=== PATIENT | female | born 2000 | race Caucasian/White ===

== ENCOUNTER → 2023-08-08 16:12 | Outpatient (CLI) | payer OTHER, SELFPAY ==
--- NOTE | 2023-08-08 16:15 | US_ITS ---
PROCEDURE: US OB BIOPHYSICAL PROFILE CLINICAL INDICATION: sga/ with TANIA COMPARISON: FINDINGS: Transabdominal sonographic images of the uterus were obtained. From her established due date she is 29weeks 0 days. The following parameters are obtained: Viable fetus in the cephalic presentation with a posterior placenta grade 1. Average ultrasound age is 27weeks 4days. Estimated due date by ultrasound is 11/03/2023. Estimated weight is 2lb 6oz, 1096 grams. heart rate: 138bpm bpm. BPD: 26weeks 6days OFD: 26weeks 6days HC: 26 weeks 5 days AC: 26 weeks 5 days FL: 29 weeks 2 days HC/AC: 1.1 Cephalic index: 0.78 FL/BPD: 0.82 FL/AC: 0.25 5 percentile Amniotic fluid index: 10.59cm, MVP 3.7 cm. Qualitative AFV: 2 breathing movements: 2 Gross body movements: 2 Tone: 2 Biophysical profile score: 8 Doppler evaluation of the umbilical artery: SD ratio: 2.59-3.36 Resistive index: 0.62 No obvious anomalies evident.Kidneys, profile, nasion, bladder, stomach, four-chamber heart, three-vessel cord appear normal. IMPRESSION: 1. Viable fetus in the cephalic presentation with a posterior placenta grade 1. 2. The fluid is within normal limits with an amniotic fluid index of 10.59 cm, MVP 3.7 cm. 3. Biophysical profile 8/8 with good breathing movement seen. 4. SD ratio is normal between 2.6 and 3.36. 5. Fetus is symmetrically small currently 2 weeks behind on growth. She is 5th percentile. 6. The AC is almost 3 weeks behind. Physician on-call was notified of the growth restriction. 7. Suggest we confirm her dates. A copy of her early ultrasound would be helpful since this is her 1st ultrasound here. Dictated by: Jesus Alexandra MD 08/08/2023 19:11 Jesus Alexandra MD in [place] 08/08/2023 19:11
== END ==
PROVIDERS: PCP Obstetrics & Gynecology; Visit Provider Obstetrics & Gynecology
DX: O28.8 Other abnormal findings on antenatal screening of mother (principal); O36.5920 Maternal care for other known or suspected poor fetal growth, second trimester, not applicable or unspecified; Z3A.27 27 weeks gestation of pregnancy
CPT/HCPCS: 76816; 76819

== ENCOUNTER 2023-09-12 14:51 | Outpatient (CLI) | payer OTHER, SELFPAY ==
[2023-09-12 15:02] VITALS: BMI 39.4
[2023-09-12 16:06] VITALS: BP 139/86; PULSE 85; RESP 18; TEMP 36.8; O2SAT 99; BMI 39.4
== END 2023-09-12 15:51 | disposition home or self-care (01) ==
LOC: OBOUT 14:52 → OB 14:52
PROVIDERS: Visit Provider Obstetrics & Gynecology
DX: O26.893 Other specified pregnancy related conditions, third trimester (principal); Z3A.34 34 weeks gestation of pregnancy
CPT/HCPCS: 59025; G0463

== ENCOUNTER 2023-09-19 12:47 | Outpatient (CLI) | payer OTHER, SELFPAY ==
[2023-09-19 13:00] VITALS: BP 133/90; PULSE 93; RESP 17; TEMP 36.8; O2SAT 100; BMI 39.4
[2023-09-19 13:09] VITALS: BMI 39.4
[2023-09-19 13:24] LABS: Microscopic, Urine URINE MICROSCOPIC (MICROSCOPIC)
[2023-09-19 13:26] LABS: Appearance,Urine CLEAR (Clear); Bilirubin,Urine Negative (Negative); Blood, Urine Negative (Negative); Color,Urine YELLOW (Yellow); Glucose,Urine (UA) Negative (Negative); Ketones,Urine Negative (Negative); Leukocyte Esterase,Urine 1+ (Negative); Nitrate,Urine POSITIVE (Negative); Protein,Urine Negative (Negative); Urobilinogen,Urine 0.2 EU/dl (0.2)
[2023-09-19 13:39] LABS: Bacteria,Urine 3+ /lpf
[2023-09-19 13:47] LABS: Amphetamine/Metha Screen,Urine Negative ng/ml (<1000); Barbiturates Screen,Urine Negative ng/ml (<200); Benzodiazepines Screen,Urine Negative ng/ml (<200); Cannabinoid Screen,Urine Negative ng/ml (<50); Cocaine Screen,Urine Negative ng/ml (<300); Methadone Screen,Urine Negative ng/ml (<300); Opiate Screen,Urine Negative ng/ml (<300); Phencyclidine Screen,Urine Negative ng/ml (<25)
== END 2023-09-19 13:58 | disposition home or self-care (01) ==
LOC: OBOUT 12:49 → OB 12:51
PROVIDERS: Visit Provider Obstetrics & Gynecology
DX: O26.893 Other specified pregnancy related conditions, third trimester (principal); Z3A.35 35 weeks gestation of pregnancy
CPT/HCPCS: 59025; 80307; 81001; 87086; G0463

== ENCOUNTER 2023-09-22 17:02 | Outpatient (CLI) | payer OTHER, SELFPAY | END 2023-09-22 23:59 | LOC: LAB.DROPOF 17:03 | PROVIDERS: PCP Obstetrics & Gynecology; Visit Provider Obstetrics & Gynecology | DX: Z34.93 Encounter for supervision of normal pregnancy, unspecified, third trimester (principal); Z3A.35 35 weeks gestation of pregnancy | CPT/HCPCS: 86403 ==

== ENCOUNTER 2023-09-28 23:27 | Outpatient (CLI) | payer OTHER, SELFPAY ==
[2023-09-28 23:36] VITALS: BMI 40.3
[2023-09-28 23:59] LABS: Microscopic, Urine URINE MICROSCOPIC (MICROSCOPIC)
[2023-09-29 00:04] LABS: Appearance,Urine CLOUDY (Clear); Bilirubin,Urine Negative (Negative); Blood, Urine Negative (Negative); Color,Urine YELLOW (Yellow); Glucose,Urine (UA) Negative (Negative); Ketones,Urine Negative (Negative); Leukocyte Esterase,Urine 1+ (Negative); Nitrate,Urine Negative (Negative); PH,Urine 6.5 (5.0-8.5); Protein,Urine Negative (Negative); Urobilinogen,Urine 0.2 EU/dl (0.2)
[2023-09-29 00:10] LABS: Fetal Membrane Rupture (Rapid) Negative (Negative)
[2023-09-29 00:17] VITALS: BP 129/88; PULSE 102; RESP 19; TEMP 37.2; O2SAT 100; BMI 40.3
[2023-09-29 00:18] LABS: Cannabinoid Screen,Urine Negative ng/ml (<50); Cocaine Screen,Urine Negative ng/ml (<300); Methadone Screen,Urine Negative ng/ml (<300); Opiate Screen,Urine Negative ng/ml (<300); Phencyclidine Screen,Urine Negative ng/ml (<25)
[2023-09-29 00:20] LABS: Barbiturates Screen,Urine Negative ng/ml (<200)
[2023-09-29 00:21] LABS: Benzodiazepines Screen,Urine Negative ng/ml (<200)
[2023-09-29 00:29] LABS: Bacteria,Urine Trace /lpf
[2023-09-29 00:36] LABS: Amphetamine/Metha Screen,Urine Negative ng/ml (<1000)
== END 2023-09-29 00:35 | disposition home or self-care (01) ==
LOC: OBOUT 23:30 → OB 23:31
PROVIDERS: Referring Provider Obstetrics & Gynecology; Visit Provider Nurse Practitioner Obstetrics & Gynecology
DX: O26.893 Other specified pregnancy related conditions, third trimester (principal); Z3A.36 36 weeks gestation of pregnancy
CPT/HCPCS: 59025; 80307; 81001; 84112; 87086; G0463

== ENCOUNTER 2023-10-02 13:31 | Outpatient (CLI) | payer OTHER, SELFPAY ==
[2023-10-02 13:59] VITALS: BP 135/81; PULSE 103; RESP 16; TEMP 37.1; O2SAT 100; BMI 39.8
== END 2023-10-02 14:38 | disposition home or self-care (01) ==
LOC: OBOUT 13:33 → OB 13:35
PROVIDERS: Visit Provider Obstetrics & Gynecology
DX: O26.893 Other specified pregnancy related conditions, third trimester (principal); Z3A.36 36 weeks gestation of pregnancy
CPT/HCPCS: 59025; G0463

== ENCOUNTER 2023-10-05 16:23 | Inpatient (IN) | payer OTHER, SELFPAY ==
[2023-10-05 16:33] VITALS: BMI 39.8
[2023-10-05 17:25] VITALS: BP 135/87; PULSE 100; RESP 17; TEMP 37.2; O2SAT 98; BMI 39.8
[2023-10-05 17:37] LABS: Microscopic, Urine URINE MICROSCOPIC (MICROSCOPIC)
[2023-10-05 17:41] LABS: Appearance,Urine CLOUDY (Clear); Blood, Urine TRACE-I (Negative); Color,Urine YELLOW (Yellow); Glucose,Urine (UA) Negative (Negative); Ketones,Urine TRACE (Negative); Leukocyte Esterase,Urine 2+ (Negative); Nitrate,Urine Negative (Negative); Protein,Urine 2+ (Negative); Specific Gravity, Urine >= 1.030 (1.005-1.030); Urobilinogen,Urine 0.2 EU/dl (0.2)
[2023-10-05 17:41] LABS: Basophils % 0.2 % (0.1-2.0); Eosinophils % 0.2 % (0.1-12.0); Hematocrit 36.2 % (37.0-47.0); Hemoglobin 12.7 g/dL (12.2-16.2); Lymphocytes # 2.3 K/mm3 (0.7-4.5); Lymphocytes % 18.2 % (10-50); Mean Corpuscular Hemoglobin 31.6 pg (27.0-31.2); Mean Corpuscular Volume 90.3 fl (81-99); Mean Platelet Volume 10.6 fl (7.4-10.4); Monocytes # 0.7 K/mm3 (0.1-1.0); Monocytes % 5.4 % (1.7-9.3); Neutrophils # 9.5 K/mm3 (1.8-7.8); Platelet Count 266 K/mm3 (142-424); Red Blood Count 4.01 M/mm3 (4.20-5.40); Red Cell Distribution Width 14.6 % (11.5-17.5); White Blood Count 12.5 K/mm3 (4.8-10.8)
[2023-10-05 17:42] LABS: Bilirubin,Urine 1+ (Negative)
[2023-10-05 17:53] LABS: Barbiturates Screen,Urine Negative ng/ml (<200)
[2023-10-05 17:54] LABS: Amphetamine/Metha Screen,Urine Negative ng/ml (<1000); Benzodiazepines Screen,Urine Negative ng/ml (<200)
[2023-10-05 17:55] LABS: Cannabinoid Screen,Urine Negative ng/ml (<50)
[2023-10-05 17:56] LABS: Bacteria,Urine 4+ /lpf; Cocaine Screen,Urine Negative ng/ml (<300); Methadone Screen,Urine Negative ng/ml (<300); RBC,Urine Occasional #/hpf (0-3)
[2023-10-05 17:57] LABS: Opiate Screen,Urine Negative ng/ml (<300); Phencyclidine Screen,Urine Negative ng/ml (<25)
[2023-10-05] MEDS: miSOPROStol 100MCG TABLET 50 MCG PO (18:23)
[2023-10-05 20:22] VITALS: BP 146/86; PULSE 96; RESP 17; TEMP 36.8; O2SAT 99
[2023-10-06] MEDS: miSOPROStol 100MCG TABLET 50 MCG PO ×4 (00:08→21:57)
[2023-10-06 07:36] VITALS: BP 134/75; PULSE 82; RESP 18; TEMP 36.8; O2SAT 99
--- NOTE | 2023-10-06 09:35 | EXP.OB.APHP ---
OB - H&P: HPI Antepartum History of Present Illness Chief complaint: Induction of labor for asymmetric IUGR History of present illness: Ms Letty Weeks is a 23 yo at 37w3d who presents to [facility] Labor and Delivery for scheduled induction of labor for asymmetric IUGR. Ultrasound with PDC 09/22/23 demonstrated EFW 14 %ile but AC lagging at 3 %ile. She transferred care to [facility] Women's Health clinic at 28 weeks. complicated by asthma. She has had good care. History of Present Criteria for establishing EDC:: LMP confirmed by 2nd trimester US care: good care Ultrasounds: abnormal US findings (Asymmetric IUGR) Obstetrical complications: none Medical complications: respiratory (asthma) Labs Blood type: A (+) positive Rubella: immune RPR/VDRL: nonreactive GBS status: negative HBsAG: negative [facility] Disclaimer: The information contained in this section may have been updated after the patient was seen, as this information can be updated by other users. Medical History (Updated 10/06/23 @ 09:44 by Yola Perez DO) 37 weeks gestation of Asthma affecting , antepartum Asymmetric IUGR affecting , antepartum Maternal obesity affecting , antepartum UTI (urinary tract infection) in , antepartum Surgical History History of tonsillectomy [place] teeth removed Family History Other Alcoholism Anemia Asthma Cancer Diabetes FHx: mental illness Hyperlipidemia Hypertension Substance abuse Social History (Updated 10/05/23 @ 23:30 by Joslyn Ashraf RN) Smoking Status: Never smoker alcohol intake: never substance use type: denies use current occupational status: unemployed Travel in the last 8 weeks: None Review of Systems Review of Systems Review of systems:: pertinent systems reviewed and negative unless documented below Meds Home Medications and Allergies Home Medications Medication Instructions Recorded Confirmed Type vits no.[id number]-ferrous fum tab PO DAILY 08/04/23 09/29/23 History 28 mg iron-folic acid 800 mcg tablet (Classic ) albuterol sulfate 90 mcg/actuation 2 puff inhalation Q6H PRN 09/22/23 09/29/23 Rx aerosol inhaler shortness of breath or wheezing #8.5 grams nitrofurantoin 100 mg PO BID 7 days #14 caps 09/22/23 09/29/23 Rx monohydrate/macrocrystals 100 mg capsule (Macrobid) albuterol sulfate 2.5 mg/3 mL 2.5 mg inhalation PRN 09/29/23 09/29/23 History (0.083 %) solution for nebulization New Prescriptions to Start Prescriptions: Allergies Allergy/AdvReac Type Severity Reaction Status Date / Time No Known Allergies Allergy Verified 09/29/23 13:35 OB - H&P: Exam Physical Exam Vital signs: Temp Pulse Resp BP Pulse Ox O2 Del Method 98.3 F 82 18 134/75 99 Room Air 10/06/23 07:36 10/06/23 07:36 10/06/23 07:36 10/06/23 07:36 10/06/23 07:36 10/06/23 07:36 Constitutional no acute distress and cooperative Routine HEENT Exam Head: Present normocephalic and atraumatic Eye: Absent conjunctivae pink ENT: Present mucous membranes moist Routine Neck Exam Present full ROM Routine Respiratory Exam Present CTA bilaterally and normal respiratory effort Routine Cardiovascular Exam Present RRR Routine Abdominal Exam Present soft (Gravid); Absent tenderness Routine Rectal Exam Patient deferred: visual exam Routine Exam Patient deferred: external exam Routine Extremities Exam Present edema (+1 bilateral lower extremity edema) and full ROM; Absent calf tenderness Routine Neurological Exam Present alert, moving all extremities and normal speech Routine Psychiatric Exam Present normal affect and cooperative Detailed Labor and Delivery Exam Dilation (cm): 1 Effacement (%): 30 Cervix position: posterior station: -2 Consistency: medium Membranes: intact Baseline heart rate: 130 monitor accelerations: Present monitor decelerations: None 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: Moderate (11-25) Tachysystole: No OB - Results Labs Labs: Short CBC 10/05/23 Range/Units 17:10 WBC 12.5 H (4.8-10.8) K/mm3 Hgb 12.7 (12.2-16.2) g/dL Hct 36.2 L (37.0-47.0) % Plt Count 266 (142-424) K/mm3 Urine 10/05/23 Range/Units 17:14 Urine Color Yellow (Yellow) Urine Appearance Cloudy (Clear) Urine pH 6.0 (5.0-8.5) Ur Specific [place] >= 1.030 (1.005-1.030) Urine Protein 2+ (Negative) Urine Glucose (UA) Negative (Negative) OB - A/P Antepartum (1) 37 weeks gestation of : Status: Acute (2) Asymmetric IUGR affecting , antepartum: Status: Acute (3) Maternal obesity affecting , antepartum: Status: Acute (4) Asthma affecting , antepartum: Status: Acute Additional Plan Planning to breastfeed?: Yes Additional Information:: Admit to [facility] Labor and Delivery for scheduled induction of labor with Cytotec followed by Pitocin GBS negative She received 2 doses of Cytotec with very little cervical change. 3rd dose of Cytotec given around 0730 on 10/06/23. Will recheck cervix around 1230. Discussed if little cervical change will plan on two day induction with a break at lunch time... will allow patient to eat and shower and plan to restart induction process this afternoon. She voiced agreement with plan. Close monitoring
--- NOTE | 2023-10-06 13:18 | EXP.LABOR.NO ---
Labor Note Subjective: Date: 10/06/23 Time: 13:18 Objective: NST:: Reactive Contractions:: infrequent Cervical Dilation:: 1 Effacement:: 50% Station: -2 Membranes: intact Fetus: Monitoring?: Yes monitoring type:: External Assessment: Labor progressing?: No Problems: (1) 37 weeks gestation of : Category: Medical Code(s): Z3A.37 - 37 weeks gestation of (2) Asymmetric IUGR affecting , antepartum: Category: Medical Code(s): O36.5990 - Maternal care for other known or suspected poor growth, unspecified trimester, not applicable or unspecified (3) Maternal obesity affecting , antepartum: Category: Medical Code(s): O99.210 - Obesity complicating , unspecified trimester (4) Asthma affecting , antepartum: Category: Medical Code(s): O99.519 - Diseases of the respiratory system complicating , unspecified trimester; J45.909 - Unspecified asthma, uncomplicated Plan: Additional information:: Minimal cervical change after 3 doses of Cytotec. Will proceed with two day induction of labor. Plan for her to eat lunch, shower and rest. Restart induction at 1600. Plan for Cytotec 50 q 6 hours x 2 doses followed by Pitocin.
--- NOTE | 2023-10-06 13:50 | HMH.PHAINT1 ---
Pharmacy Intervention Comments: MEDICATION RECONCILIATION COMPLETED ON PATIENT USING EXTERNAL FILL HISTORY FROM PHARMACY. -CRISTIANO FRANCES, LAZARAD
[2023-10-07] MEDS: DEXTROSE 5%-LACTATED RINGERS 1,000 ML 125 ML IV ×2 (03:57→12:21)
[2023-10-07] MEDS: OXYTOCIN/RINGERS LACTATE 30 UNITS/500 ML BAG IV (04:15)
[2023-10-07] MEDS: LACTATED RINGERS 1000ML 1,000 ML 250 ML IV (04:16)
[2023-10-07] MEDS: ACETAMINOPHEN 325MG TAB 650 MG PO (08:22)
--- NOTE | 2023-10-07 09:53 | EXP.ANES.CKL ---
[facility] Disclaimer: The information contained in this section may have been updated after the patient was seen, as this information can be updated by other users. Medical History 37 weeks gestation of Asthma affecting , antepartum Asymmetric IUGR affecting , antepartum Maternal obesity affecting , antepartum UTI (urinary tract infection) in , antepartum Surgical History History of tonsillectomy [place] teeth removed Family History Other Alcoholism Anemia Asthma Cancer Diabetes FHx: mental illness Hyperlipidemia Hypertension Substance abuse Social History Smoking Status: Never smoker alcohol intake: never substance use type: denies use current occupational status: unemployed Travel in the last 8 weeks: None [facility] Anesthesia Checklist Patient Identification Patient Identification: Arm Band and Verbal (Name & ) Structural Data Admitted From: Inpatient Planned Operative Procedure/s: Labor epidural Consent for Planned Operative Procedure(s) Verified: Yes NPO Status Verified Time NPO: 00:00 Chart Verification Results Verified: CBC Additional verifications Patient : Yes Airway Assessment Mallampati Score:: Class II C-Spine Mobility Assessed: Yes TMJ Mobility Assessed: Yes Dentition: Good Dentition Neurological Assessment Level of Consciousness: Awake Hx Seizures: No Numbness or tingling in extremities: No Anesthesia Plan Anesthesia Risk discussed: Yes Anesthesia Plan: Verified ASA Class: II Anesthesia Type: Epidural
[2023-10-07] MEDS: ePHEDrine SULF 50MG/ML VIAL 10 MG IV (10:41)
--- NOTE | 2023-10-07 11:59 | P.PN_ITS ---
Subjective *Date: 10/07/23 *Time: 11:59 Interval history: Ms Letty Weeks is a 23 yo at 37w4d (LMP confirmed by 2nd trimester US) who presents to [facility] Labor and Delivery for scheduled induction of labor for asymmetric IUGR. Ultrasound with PDC 09/22/23 demonstrated EFW 14 %ile but AC lagging at 3 %ile. She transferred care to [facility] Women's Health clinic at 28 weeks. complicated by asthma. She has had good care. Doing well this morning. She is tired but still optimistic Exam Data for Last 24 hours Vital signs and Labs for Last 24 Hours: Temp Pulse Resp BP Pulse Ox O2 Del Method 98.3 F 82 18 134/75 99 Room Air 10/06/23 07:36 10/06/23 07:36 10/06/23 07:36 10/06/23 07:36 10/06/23 07:36 10/06/23 07:36 I & O for Last 24 hours: Intake & Output 10/04/23 10/05/23 10/06/23 10/07/23 23:59 23:59 23:59 23:59 Weight 232 lb Narrative: SVE: /-3 Constitutional Constitutional: no acute distress *Routine HEENT Exam Head: Present normocephalic Eye: Present EOMI and PERRL ENT: Present mucous membranes moist *Routine Neck Exam Neck: Present supple; Absent lymphadenopathy *Routine Respiratory Exam Respiratory: Present CTA bilaterally *Routine Cardiovascular Exam Cardiovascular: Present RRR *Routine Abdominal Exam Abdominal: Present soft and normoactive bowel sounds; Absent tenderness *Routine Extremities Exam Extremities: Absent cyanosis, clubbing or edema *Routine Skin Exam Skin: Present warm; Absent rash *Routine Neurological Exam Neurological: Present alert and oriented X3 Assessment and Plan *Assessment and plan (1) 37 weeks gestation of : Status: Acute Category: Medical Code(s): Z3A.37 - 37 weeks gestation of (2) Asymmetric IUGR affecting , antepartum: Status: Acute Category: Medical Code(s): O36.5990 - Maternal care for other known or suspected poor growth, unspecified trimester, not applicable or unspecified (3) Maternal obesity affecting , antepartum: Status: Acute Category: Medical Code(s): O99.210 - Obesity complicating , unspecified trimester (4) Asthma affecting , antepartum: Status: Acute Category: Medical Code(s): O99.519 - Diseases of the respiratory system complicating , unspecified trimester; J45.909 - Unspecified asthma, uncomplicated (5) : Status: Acute Category: Medical Code(s): Z34.90 - Encounter for supervision of normal , unspecified, unspecified trimester (6) Asthma: Status: Acute Category: Medical Code(s): J45.909 - Unspecified asthma, uncomplicated Plan -s/p 5 doses of cytotec -Currently on 12 of Pitocin when i saw her -I counseled the pt extensively of options. discussed continuing pitocin, AROM, stopping pitocin and trying cervidil. Discussed Cervical ripening balloon. Pt elected to proceed. Balloon placed without difficulty. Mother was uncomfortable but tolerated well
[2023-10-07] MEDS: LACTATED RINGERS 1000ML 1,000 ML 150 ML IV (17:39)
--- NOTE | 2023-10-07 18:04 | EXP.LABOR.NO ---
Labor Note Subjective: Date: 10/07/23 Time: 18:10 regular contraction Comment:: increased pain, requesting bolus on epidural Objective: Contractions:: every 2-3 minutes Cervical Dilation:: 7-8 Effacement:: 75% Station: -2 Membranes: ruptured (at 1721, clear ) Fetus: Monitoring?: Yes monitoring type:: Internal and External (IUPC placed ) Assessment: Labor progressing?: Yes Plan: Anesthesia for epidural?: Yes Continue to monitor?: Yes Additional information:: I checked the patient secondary to recurrent variable decelerations. She was 7-8cm with a bulging bag of water. AROM was completed successfully. The patient tolerated it well and the fetus tolerated it well also. Infant was monitored for 30 minutes after that variable decelerations persisted. Amnioinfusion was initiated. We will continue monitoring. The patient was counseled on the risk of delivery if heart rate tracing persisted to be a category 2 strip, remote from delivery. We will continue to monitor cervical change and the strip closely. Patient and significant other voiced understanding
[2023-10-07 19:18] LABS: Cord Blood PH 7.15 (7.35-7.45)
[2023-10-07 19:20] LABS: Cord Blood PH 7.18 (7.35-7.45)
[2023-10-07] MEDS: OXYTOCIN/RINGERS LACTATE 30 UNITS/500 ML BAG 40 UNITS IV (19:20)
--- NOTE | 2023-10-07 19:58 | P.PCN_ITS ---
Delivery Note Delivery Date:: 10/07/23 Delivery Time:: 19:00 Anesthesia Type: Epidural Was labor medically induced?: Yes Induction method: per misoprostol protocol Gestational age (weeks): 37 Infant delivered prior to 39 weeks?: Yes Justification for early elective delivery:: IUGR Gender: Male at 1 minute: 5 at 5 minutes: 7 LAC or MLE?: LAC Delivery Procedure:: Preoperative diagnosis: 1. at 37.4 completed this weeks gestation, vertex 2. Rh positive 3. GBS negative 4. Asymmetric intrauterine growth restriction, AC: 4th percentile 5. Asthma Postoperative diagnosis: 1. at 37.4 completed this weeks gestation, vertex 2. Rh positive 3. GBS negative 4. Asymmetric intrauterine growth restriction, AC: 4th percentile 5. Asthma EBL: 200mL Specimen: 1. Cord blood 2. Cord gases 3. Placenta Findings: 1. Liveborn viable male infant: Santosh. Apgars 5/7/8 at 1, 5 and 10 minutes respectively. Weight pending at time of dictation 2. Right labial laceration Complications: None Procedure: Nonoperative spontaneous vaginal delivery Letty is a 23-year-old G1 who presented on 10/05/2023 for induction of labor secondary to IUGR. Patient received 5 doses of Cytotec and on the morning of 10/07/2023 Pitocin was started per protocol. At this time of cervical ripening balloon was also placed. Around lunchtime the cervical ripening balloon was expelled and the patient was noted to be approximately 7-8 cm dilated. Throughout her labor curve the patient continued to have recurrent variables with an occasional late deceleration however she was making progress and the strip had areas with adequate variability and accelerations. The patient and significant other were counseled. Decision was made to proceed with vaginal delivery as it felt delivery was close. The patient had artificial rupture membranes, clear fluid. Shortly after this and amnioinfusion was started. The patient had a replacement of her epidural and shortly after that the pressure was so intense that she started pushing independently. During pushing the patient had recurrent variable decelerations and was counseled on a vacuum- assisted vaginal delivery. She was given 2 more contractions as between contractions the baby's heart rate was recovering to a baseline of 120s to 130s. The was noted to be in BEVERLY position. With effective maternal pushing there was a nonoperative spontaneous vaginal delivery. There was no nuchal cord. The anterior right shoulder delivered, followed by the posterior shoulder without dystocia. The body and lower extremities delivered without difficulty. The infant was bulb suctioned following delivery. The infant was placed on the maternal abdomen and the cord was immediately clamped and cut secondary to poor tone. Cord blood and cord gases were collected and sent for routine testing. The placenta delivered with cord traction and suprapubic contertraction. Pitocin was started and the placenta and cord were inspected. The uterus was firm and bleeding was minimal. The perineum, vaginal suarez, cervix, and paraurethral area were inspected thoroughly. There was a right labial laceration. The laceration was repaired in the usual fashion using 2-0 Vicryl suture. The laceration was hemostatic. The cervix and vaginal suarez were inspected and noted to be hemostatic. This concluded the delivery. The patient was counseled regarding the events of the delivery and repair. The patient tolerated the delivery well. All counts were correct by nursing. The infant was receiving supplemental oxygen and still had suboptimal tone at the conclusion of the delivery. Discussed possible transfer pending peds evaluation with the mom and if this were to occur discussed with the patient that we would transfer her out or discharge her as soon as possible.
[2023-10-07 20:00] VITALS: BP 138/69; PULSE 88; RESP 20; TEMP 36.8; O2SAT 99
[2023-10-07] MEDS: IBUPROFEN 400 MG TABLET 800 MG PO (20:58)
[2023-10-07] MEDS: ACETAMINOPHEN 500MG TAB 1000 MG PO (20:58)
[2023-10-08 04:46] VITALS: BP 120/66; PULSE 70; RESP 18; TEMP 36.7; O2SAT 99
[2023-10-08] MEDS: ACETAMINOPHEN 500MG TAB 1000 MG PO ×3 (06:11→19:11)
[2023-10-08] MEDS: IBUPROFEN 400 MG TABLET 800 MG PO ×3 (06:12→22:03)
[2023-10-08 06:39] LABS: Basophils % 0.1 % (0.1-2.0); Eosinophils # 0.1 K/mm3 (0.0-0.4); Eosinophils % 0.4 % (0.1-12.0); Hematocrit 32.2 % (37.0-47.0); Hemoglobin 11.1 g/dL (12.2-16.2); Lymphocytes # 2.3 K/mm3 (0.7-4.5); Mean Corpuscular HGB Conc 34.4 g/dL (31.8-35.4); Mean Corpuscular Hemoglobin 31.3 pg (27.0-31.2); Mean Corpuscular Volume 90.8 fl (81-99); Mean Platelet Volume 10.8 fl (7.4-10.4); Monocytes # 0.6 K/mm3 (0.1-1.0); Monocytes % 4.1 % (1.7-9.3); Neutrophils # 11.3 K/mm3 (1.8-7.8); Neutrophils % 79.3 % (37.0-80.0); Platelet Count 213 K/mm3 (142-424); Red Blood Count 3.54 M/mm3 (4.20-5.40); Red Cell Distribution Width 14.3 % (11.5-17.5); White Blood Count 14.2 K/mm3 (4.8-10.8)
[2023-10-08 08:37] VITALS: BP 131/75; PULSE 98; RESP 16; TEMP 36.7; O2SAT 100
--- NOTE | 2023-10-08 08:38 | P.PN_ITS ---
Subjective *Date: 10/08/23 *Time: 08:38 Interval history: PPD # 1 s/p Feeling well. Pain controlled. Breast feeding. Appropriate lochia. Voiding without difficulty and passing flatus. Tolerating regular diet. Denies fever/chills, chest pain and shortness of breath. No headaches, vision changes, dizziness/lightheadedness. Ambulating well ad jd. Medical Exam Vital signs and Labs for Last 24 Hours: Vital Signs Temp Pulse Resp BP Pulse Ox O2 Del Method 10/08/23 04:46 98.0 F 70 18 120/66 99 Room Air 10/07/23 20:00 98.2 F 88 20 138/69 99 Laboratory Results - last 24 hr 10/07/23 19:12: Cord ABG pH 7.15 L* 10/07/23 19:14: Cord ABG pH 7.18 L* 10/08/23 05:22: WBC 14.2 H, RBC 3.54 L, Hgb 11.1 L, Hct 32.2 L, MCV 90.8, MCH 31.3 H, MCHC 34.4, RDW 14.3, Plt Count 213, MPV 10.8 H, Neut % (Auto) 79.3, Lymph % (Auto) 16.0, [place] % (Auto) 4.1, Eos % (Auto) 0.4, Baso % (Auto) 0.1, Neut # (Auto) 11.3 H, Lymph # (Auto) 2.3, [place] # (Auto) 0.6, Eos # (Auto) 0.1, Baso # (Auto) 0.0 I & O for Labs for Last 24 Hours: Intake & Output 10/05/23 10/06/23 10/07/23 10/08/23 23:59 23:59 23:59 23:59 Weight 232 lb Head: Present atraumatic and normocephalic ENT: Present mucous membranes moist Neck: Present normal inspection and full ROM Respiratory: Present CTA bilaterally and normal respiratory effort Cardiac: Present Reg Rate and Rhythm GI: Present soft; Absent distention or tenderness Comments:: Uterine fundus firm and below umbilicus Rectal (female): Present deferred (female): Present deferred Extremities: Present normal inspection and full ROM; Absent edema Neuro: Present alert, awake and moves all extremities Assessment and Plan *Assessment and plan (1) Status post vaginal delivery: Status: Acute Category: Surgical (2) 37 weeks gestation of : Status: Acute Category: Medical Code(s): Z3A.37 - 37 weeks gestation of (3) Asymmetric IUGR affecting , antepartum: Status: Acute Category: Medical Code(s): O36.5990 - Maternal care for other known or suspected poor growth, unspecified trimester, not applicable or unspecified (4) Maternal obesity affecting , antepartum: Status: Acute Category: Medical Code(s): O99.210 - Obesity complicating , unspecified trimester (5) Asthma affecting , antepartum: Status: Acute Category: Medical Code(s): O99.519 - Diseases of the respiratory system complicating , unspecified trimester; J45.909 - Unspecified asthma, uncomplicated Plan Continue routine care Encouraged increased ambulation Plan d/c home PPD #2 or PPD # 3
[2023-10-08] MEDS: PRENATAL MULTIVITAMIN W/IRON 1 EACH PO (19:11)
[2023-10-09 04:20] VITALS: BP 131/75; PULSE 82; RESP 17; TEMP 36.6; O2SAT 98
[2023-10-09] MEDS: ACETAMINOPHEN 500MG TAB 1000 MG PO ×2 (06:00)
[2023-10-09] MEDS: IBUPROFEN 400 MG TABLET 800 MG PO (06:00)
--- NOTE | 2023-10-09 11:03 | EXP.DC.SUM ---
General Admission date:: 10/05/23 Discharge date: 10/09/23 HPI HPI HPI: PPD # 2 s/p Feeling well. Pain controlled. Breast feeding. Light lochia. Voiding without difficulty and passing flatus. Tolerating regular diet. Denies fever/chills, chest pain and shortness of breath. No headaches, vision changes, dizziness/lightheadedness. Ambulating well ad jd. Hospital Course Hospital Course Hospital Course: Ms Letty Weeks is a 23 yo at 37w3d admitted to [facility] Labor and Delivery for scheduled induction of labor for asymmetric IUGR. Ultrasound with PDC 09/22/23 demonstrated EFW 14 %ile but AC lagging at 3 %ile. She transferred care to [facility] Women's Health clinic at 28 weeks. complicated by asthma. She has had good care. She underwent two day induction of labor with Cytotec, Cook catheter and Pitocin. She had a normal spontaneous vaginal delivery on 10/07/23 at 1900. She delivered a live male baby, Santosh, weiging 5 lb 8 oz. APGARs 5 (1 min), 7 (5 min). EBL 200 mL. She did well . Pain controlled. Breast feeding. Light lochia. Voiding without difficulty and passing flatus. Tolerating regular diet. Denies fever/chills, chest pain and shortness of breath. No headaches, vision changes, dizziness/lightheadedness. Vital signs stable, afebrile. Heart regular rate and rhythm. Lungs clear to auscultation. Abdomen soft, nontender. +1 bilateral lower extremity edema. No calf tenderness. Ambulating well ad jd. Normal hospital course. She was discharged home on PPD # 2 with instructions to follow-up in the office in 2 weeks or sooner if needed. Exam Data for Last 24 hours Vital signs and Labs for Last 24 Hours: Temp Pulse Resp BP Pulse Ox O2 Del Method 98 F 82 17 131/75 98 Room Air 10/09/23 04:20 10/09/23 04:20 10/09/23 04:20 10/09/23 04:20 10/09/23 04:20 10/09/23 04:20 Microbiology Reports for the Last 24 Hours: Microbiology 10/05/23 17:14 Urine,Clean Catch Urine Culture - Preliminary Constitutional Constitutional: no acute distress and cooperative *Routine HEENT Exam Head: Present normocephalic and atraumatic Eye: Absent conjunctivae pink ENT: Present mucous membranes moist *Routine Neck Exam Neck: Present full ROM *Routine Respiratory Exam Respiratory: Present CTA bilaterally and normal respiratory effort *Routine Cardiovascular Exam Cardiovascular: Present RRR *Routine Abdominal Exam Abdominal: Present soft; Absent tenderness or distended Comments: Uterine fundus firm and below umbilicus *Routine Rectal Exam Patient deferred: visual exam *Routine Exam Patient deferred: external exam *Routine Extremities Exam Extremities: Present edema (+1 bilateral lower extremity edema) and full ROM; Absent calf tenderness *Routine Neurological Exam Neurological: Present alert, moving all extremities and normal speech Routine Psychiatric Exam Psychiatric: Present normal affect and cooperative Results Data Completed and Pending Labs on day of discharge: Preliminary micro results at discharge 10/05/23 17:14 Urine Culture - Preliminary Urine,Clean Catch DS: Diagnosis Discharge Diagnosis (1) Status post vaginal delivery: Status: Acute (2) 37 weeks gestation of : Status: Acute Code(s): Z3A.37 - 37 weeks gestation of (3) Asymmetric IUGR affecting , antepartum: Status: Acute Code(s): O36.5990 - Maternal care for other known or suspected poor growth, unspecified trimester, not applicable or unspecified (4) Maternal obesity affecting , antepartum: Status: Acute Code(s): O99.210 - Obesity complicating , unspecified trimester (5) Asthma affecting , antepartum: Status: Acute Code(s): O99.519 - Diseases of the respiratory system complicating , unspecified trimester; J45.909 - Unspecified asthma, uncomplicated Meds Home Medications and Allergies Home Medications Medication Instructions Recorded Confirmed Type vits no.126-ferrous fum 1 tab PO DAILY Supplement 08/04/23 10/06/23 History 28 mg iron-folic acid 800 mcg tablet (Classic ) albuterol sulfate 2.5 mg/3 mL 2.5 mg inhalation Q6HP PRN 09/29/23 10/06/23 History (0.083 %) solution for nebulization Shortness Of Breath albuterol sulfate 90 mcg/actuation 2 puff inhalation Q6HP PRN 10/06/23 10/06/23 History aerosol inhaler shortness of breath or wheezing ibuprofen 800 mg tablet 800 mg PO Q8H PRN pain #20 tabs 10/09/23 Rx New Prescriptions to Start Prescriptions: ibuprofen Yola Perez Allergies Allergy/AdvReac Type Severity Reaction Status Date / Time No Known Allergies Allergy Verified 09/29/23 13:35 Discharge Plan Disposition Patient Disposition: Home, Self-Care Condition: Good Discharge Order Discharge Orders: Discharge Order (Routine); Ordered 10/09/23 Ordered By: Yola Perez Follow up Plan Follow up with: Yola Perez DO [Primary Care Provider] - 10/22/23 1:45 pm Prescriptions/Medication Reconciliation: New ibuprofen 800 mg tablet 800 mg PO Q8H PRN (Reason: pain) Qty: 20 0RF Continued Classic 28 mg iron- 800 mcg tablet 1 tab PO DAILY albuterol sulfate 2.5 mg /3 mL (0.083 %) solution for nebulization 2.5 mg inhalation Q6HP PRN (Reason: Shortness Of Breath) albuterol sulfate 90 mcg/actuation HFA aerosol inhaler 2 puff inhalation Q6HP PRN (Reason: shortness of breath or wheezing) Problem Reconciliation Problems Reviewed?: Yes Patient Discharge Instructions ACTIVITY: Limited activity DIET: continue same diet and regular diet Additional Instructions: Discharge: 1. Take 800 mg Ibuprofen every 8 hours as needed for pain. You can also take 500-1000 mg of Tylenol in between doses, every 6-8 hours. 2. Nothing in the vagina for 6 weeks - no intercourse, douching or tampons. No tub baths/hot tubs or swimming pools 3. Reasons to return to L&D or call On-Call doctor - fever (greater than 100.4) - heavy vaginal bleeding (soaking through 1 pad in less than 2 hours) - vaginal discharge (malodorous and/or purulent) - severe headaches not resolved by medication or rest and leg tenderness/edema 4. depression/blues - Normal to feel anxious/overwhelmed for first 2 weeks - Talk to your doctor if: severe anxiety, trouble bonding with baby, withdrawing from other family members, thoughts of harming yourself or others Yola Perez DO [facility] [phone] Patient Instructions: Depression, Hemorrhage, DI for Labor and Delivery, Vaginal , DI for Pre-eclampsia, [facility] Post Discharge Instructions Providers Primary Care Provider: Yola Perez Admit Provider: Yola Perez Attending Provider: Yola Perez
== END 2023-10-09 12:50 | disposition home or self-care (01) | DRG 807 ==
LOC: OB 16:23 → OBOUT 10-06 13:43 → OB 10-06 13:43
PROVIDERS: Obstetrics & Gynecology; Admitting Provider Obstetrics & Gynecology; PCP Obstetrics & Gynecology; Visit Provider Obstetrics & Gynecology
DX: O36.5930 Maternal care for other known or suspected poor fetal growth, third trimester, not applicable or unspecified (principal); Z37.0 Single live birth; O99.52 Diseases of the respiratory system complicating childbirth; J45.909 Unspecified asthma, uncomplicated; O99.214 Obesity complicating childbirth; O76 Abnormality in fetal heart rate and rhythm complicating labor and delivery; O70.0 First degree perineal laceration during delivery
CPT/HCPCS: 59409; 36415; 59025; 80307; 81001; 82800; 85025; 86850; 87086; 94761; C1758; G0283; G0463